=== PATIENT | female | born 1995 | race Hispanic/Latino ===

== ENCOUNTER 2018-09-01 21:31 | Emergency (ER) | payer MEDICAID ==
--- NOTE | 2018-09-04 02:24 | EKG ---
Test Reason : TACHYCARDIA Blood Pressure : / mmHG Vent. Rate : 109 BPM Atrial Rate : 109 BPM P-R Int : 142 ms QRS Dur : 084 ms QT Int : 330 ms P-R-T Axes : 032 054 006 degrees QTc Int : 444 ms Sinus tachycardia Possible Lateral infarct , age undetermined Abnormal ECG Confirmed by NATO SANCHES MD ([id number]), assistant editor KAVON CHEEK ([id number]) on 09/04/2018 2:23:54 AM Referred By: Confirmed By:NATO SANCHES MD
== END 2018-09-01 22:44 | disposition home or self-care (01) ==
LOC: ERS 21:31
DX: R00.0 Tachycardia, unspecified (principal); N39.0 Urinary tract infection, site not specified
CPT/HCPCS: 93005